=== PATIENT | female | born 1980 | race Caucasian/White ===

== ENCOUNTER 2020-11-04 13:17 | Outpatient (CLI) | payer SELFPAY ==
[2020-11-11 10:01] LABS: HSV 2 IGG TYPE SPECIFIC AB <0.90
== END 2020-11-04 23:59 | disposition home or self-care (01) ==
LOC: LAB.N 13:17
PROVIDERS: ATTEND Family Medicine
DX: Z20.2 Contact with and (suspected) exposure to infections with a predominantly sexual mode of transmission (principal)
CPT/HCPCS: 36415; 81599; 86695; 86696